=== PATIENT | female | born 1970 | race African-American/Black ===

== ENCOUNTER 2018-01-25 02:08 | Emergency (ER) | payer OTHER ==
[2018-01-25] MEDS ORDERED: Ketorolac Tromethamine 60 MG/2 ML VIAL ONE (02:59)
== END 2018-01-25 03:13 | disposition home or self-care (01) ==
LOC: ERS 02:08
DX: S83.92XA Sprain of unspecified site of left knee, initial encounter (principal); I10 Essential (primary) hypertension; X58.XXXA Exposure to other specified factors, initial encounter
CPT/HCPCS: 96372; J1885

== ENCOUNTER 2018-04-12 12:17 | Outpatient (CLI) | payer OTHER | END 2018-04-12 12:18 | disposition home or self-care (01) | LOC: BICMAMMO 12:17 | PROVIDERS: ATTEND Obstetrics & Gynecology | DX: Z12.31 Encounter for screening mammogram for malignant neoplasm of breast (principal); N64.89 Other specified disorders of breast | CPT/HCPCS: 77063; 77067 ==

== ENCOUNTER 2018-04-23 13:16 | Outpatient (CLI) | payer OTHER ==
--- NOTE | 2018-04-23 15:26 | ULT ---
LIMITED RIGHT BREAST ULTRASOUND: Date: 04-23-18 Provided Clinical History: Abnormal mammogram. FINDINGS: Limited sonographic interrogation was performed of the right breast in the region of mammographic con cern. Multiple cysts are seen, some of which contain internal debris. No solid mass or other concerni ng findings are evident. IMPRESSION: BIRADS category 2 - benign findings. Return to screening mammography recommended. POS: [facility]
== END 2018-04-23 13:17 | disposition home or self-care (01) ==
LOC: BICMAMMO 13:16
PROVIDERS: ATTEND Obstetrics & Gynecology
DX: R92.8 Other abnormal and inconclusive findings on diagnostic imaging of breast (principal)
CPT/HCPCS: G0279

== ENCOUNTER 2019-05-09 07:48 | Emergency (ER) | payer OTHER ==
[2019-05-09] MEDS ORDERED: Ketorolac Tromethamine 30 MG/ML VIAL ONE (08:30)
--- NOTE | 2019-05-09 10:23 | RAD ---
RIGHT ELBOW 4 VIEWS: Date: 05/09/19 HISTORY: Elbow pain. FINDINGS: There are no signs of fracture, dislocation, or joint effusion. No evidence of any significant arthri tic change. Some minimal enthesopathy changes of the common extensor origin incidentally seen. IMPRESSION: No acute findings. POS: [facility]
== END 2019-05-09 09:19 | disposition home or self-care (01) ==
LOC: ERS 07:48
DX: M79.601 Pain in right arm (principal); I10 Essential (primary) hypertension; W50.1XXA Accidental kick by another person, initial encounter
CPT/HCPCS: J1885